=== PATIENT | male | born 1950 | race Caucasian/White ===

== ENCOUNTER 2022-09-13 12:18 | Day surgery (SDC) | payer OTHER, SELFPAY ==
--- NOTE | 2022-09-13 | PATH_ITS ---
[facility] Accession Number: [id number] . 01 Material submitted: . PART A: ileo-cecal valve - ILEOCECAL VALVE POLYP PART B: colon - ASCENDING COLON POLYP PART C: colon - TRANSVERSE COLON POLYP . 01 Diagnosis: A. Ileocecal Valve, Polyp, Biopsy: Tubular adenoma. . B. Ascending Colon, Polyp, Biopsy: Benign lymphoid aggregate. . C. Transverse Colon, Polyp, Biopsy: Colonic mucosa with mild superficial hyperplastic type changes. Additional levels were examined. Negative for dysplasia and malignancy. MRV 09/17/2022 1533 Local . 01 Electronically signed: . Yamile Fuentes MD, Pathologist NPI- [id number] . 01 Gross description: . Part A: ILEOCECAL VALVE POLYP: Received in formalin is 1 fragment(s) of martinez, soft tissue measuring 0.5 x 0.2 x 0.2 cm submitted entirely in 1 cassette(s) Part B: ASCENDING COLON POLYP: Received in formalin is 1 fragment(s) of martinez, soft tissue measuring 0.3 x 0.2 x 0.2 cm submitted entirely in 1 cassette(s) Part C: TRANSVERSE COLON POLYP: Received in formalin is 1 fragment(s) of martinez, soft tissue measuring 1.1 x 0.2 x 0.2 cm submitted entirely in 1 cassette(s) /CPE 09/15/2022 1028 Local . 01 Pathologist provided ICD-10: D12.0, K63.5 . 01 CPT . 242085, 134927, 664409 Specimen Comment: A courtesy copy of this report has been sent to [phone] Performed at: 01 [facility] [address] [place] [address] [address] [facility], [place], [place] [id number] MD Romario Baker MD Phone: [phone]
[2022-09-13 13:02] VITALS: BP 156/79; PULSE 72; RESP 18; TEMP 36.7; O2SAT 97; BMI 31.4
[2022-09-13 13:14] LABS: COVID19 -Nasal RAPID Negative (Negative)
[2022-09-13 13:20] VITALS: BMI 31.4
[2022-09-13] MEDS: LACTATED RINGERS 1,000 ML 84 ML IV (13:25)
--- NOTE | 2022-09-13 13:36 | PM.HP.1 ---
History of Present Illness History of Present Illness Date Patient Seen: 09/13/22 Time Patient Seen: 13:30 Chief complaint: Colonoscopy Narrative: Patient is a very pleasant 72-year-old male who presented for colonoscopy. His last complete colonoscopy was over 5 years ago. He had an attempted colonoscopy about 3 years ago however he had a poor preparation at that time. Repeat colonoscopy was postponed due to COVID. He is overdue for surveillance colonoscopy. He states he is unsure whether not he had polyps on his last complete exam, but he has had polyps on previous examinations. Patient History Medical History (Updated 09/13/22 @ 13:22 by Ashley Mcgill RN) Diabetes High cholesterol HTN (hypertension) Family & Social History Social History: household members spouse Tobacco & Substance use: Smoking Status Former smoker alcohol intake current alcohol intake frequency 0-2 drinks per day Substance Use Type marijuana Meds Home Medications and Allergies Home Medications Medication Instructions Recorded Confirmed Type amlodipine 10 mg tablet 10 mg PO DAILY 09/13/22 09/13/22 History amoxicillin 500 mg tablet 1,000 mg PO Q12H 09/13/22 09/13/22 History aspirin 81 mg tablet 81 mg PO DAILY 09/13/22 09/13/22 History atorvastatin 80 mg tablet 80 mg PO BEDTIME 09/13/22 09/13/22 History escitalopram oxalate 5 mg tablet 5 mg PO DAILY 09/13/22 09/13/22 History glipizide 2.5 mg tablet, extended 2.5 mg PO BID 09/13/22 09/13/22 History release 24 hr hydrochlorothiazide 50 mg tablet 50 mg PO DAILY 09/13/22 09/13/22 History lisinopril 40 mg tablet 40 mg PO DAILY 09/13/22 09/13/22 History metformin 1,000 mg tablet,extended 1,000 mg PO BID 09/13/22 09/13/22 History release 24hr Allergies Allergy/AdvReac Type Severity Reaction Status Date / Time No Known Drug Allergies Allergy Verified 09/13/22 13:12 Review of Systems Review of Systems ROS: Yes All systems reviewed with the patient and are negative except as otherwise documented Exam Vital Signs (past 8 hours): - 09/13/22 13:02 Temperature 98.1 F Pulse Rate 72 Respiratory Rate 18 Blood Pressure 156/79 H Pulse Oximetry 97 Oxygen Delivery Method Room Air Oxygen Delivery Method Room Air Const General: cooperative, healthy appearing, comfortable and No acute distress HENMT Head: atraumatic Resp Effort & Inspection: normal respiratory effort, able to speak in complete sentences and no audible wheezes Auscultation: clear to auscultation bilaterally Cardio Rate: regular rate Rhythm: regular rhythm GI Palpation: soft Auscultation: normal bowel sounds Objective Labs Labs: Laboratory Results - last 24 hr 09/13/22 12:48 SARS-CoV-2 (PCR) Negative Assessment & Plan Assessment & Plan narrative: 1. Personal history colon polyps 2. Personal history of poor preparation Colonoscopy today, further recommendations to follow Time Spent With Patient Critical Care time: I spent a total of [] minutes of critical care time on this patient's care today; this time is exclusive of procedural time.
--- NOTE | 2022-09-13 14:05 | PM.OP.COLON ---
Operative Date/Time/Diagnoses Date of procedure: 09/13/22 Time of procedure: 13:42 Procedure Notes Procedure in detail: Surgeon: Angle Manzano DO Procedure: Colonoscopy with polypectomy Preoperative diagnosis: 1. Personal history of colon polyps Postoperative diagnosis: 1. 3 mm ileocecal valve polyp removed with Jumbo forceps 2. 3 mm ascending colon polyp removed Jumbo forceps 3. 6 mm transverse colon polyp removed with cold snare 4. Diverticulosis scattered throughout the transverse colon, descending colon and sigmoid. 5. Grade 1 internal hemorrhoids noted on retroflexion 6. Normal-appearing terminal ileum Medications: Monitored anesthesia care Preanesthesia Assessment An H and P was performed/updated and the Px?s ASA class is 2. The procedure was discussed in detail with the patient. The potential risks and complications including infection, bleeding, missed lesions, perforation, need for surgery in case of perforation, prolonged hospital stay, and were explained. A brief question and answer period was allotted and once all questions were answered, informed consent was obtained. The patient was brought back to the procedure room and placed on standard monitoring. The patient?s vital signs were monitored continuously throughout the entire procedure. Prior to starting, a timeout was performed to confirm the patient?s identity, allergies, medications, and procedure. Procedure in detail The patient was placed in left lateral decubitus position and once adequate sedation was obtained a REYNALDO was performed. The digital rectal examination did not reveal any palpable lesions. The tip of the colonoscope was placed in the anal canal and advanced without difficulty all the way to the cecum which was identified by the appendiceal orifice and the ileocecal valve. Terminal ileal intubation was achieved. Terminal ileum appeared unremarkable. A 3 mm polyp was noted on the ileocecal valve. This was removed with Jumbo forceps. A 3 mm polyp was found in the ascending colon removed with Jumbo forceps. A 6 mm transverse colon polyp was removed with cold snare. Diverticulosis was scattered throughout the transverse, descending, and sigmoid colon. Grade 1 internal hemorrhoids were noted on retroflexion. Exam was otherwise unremarkable. Careful examination of all fernandez of the colon was performed with irrigation of any residual stool, greater than usual irrigation was required due to quality of preparation. However we were able to achieve adequate prep. The patient tolerated the procedure well and will be brought back to the recovery area to be discharged once criteria are met. The prep was judged to be good/excellent and adequate to identify polyps less than 6 mm. The withdrawal time was 15min. Complications There were no complications and estimated blood loss was minimal. Recommendations: Resume high-fiber diet Continue outPx medications Follow up pathology results Repeat colonoscopy will be determined after pathology results are. Recommend additional dose preparation for future colonoscopies. An emergency contact number was given to the patient for any complications related to the procedure
[2022-09-13 14:13] VITALS: BP 118/70; PULSE 67; RESP 19; TEMP 36.9; O2SAT 98
[2022-09-13 14:16] VITALS: BP 118/70; PULSE 73; RESP 16; TEMP 36.8; O2SAT 98
[2022-09-13 14:30] VITALS: BP 138/78; PULSE 77; RESP 16; TEMP 36.3; O2SAT 98
== END 2022-09-13 14:35 | disposition home or self-care (01) ==
PROVIDERS: PCP Family Medicine; Referring Provider Student in an Organized Health Care Education/Training Program; Visit Provider Student in an Organized Health Care Education/Training Program
PROC: 0DJD8ZZ Inspection of Lower Intestinal Tract, Via Natural or Artificial Opening Endoscopic (ICD-10-PCS; CPT 45378; principal; 2022-09-13 14:00)
DX: Z12.11 Encounter for screening for malignant neoplasm of colon (principal); Z86.010 Personal history of colon polyps; K64.0 First degree hemorrhoids; K57.30 Diverticulosis of large intestine without perforation or abscess without bleeding; Z20.822 Contact with and (suspected) exposure to COVID-19; E11.9 Type 2 diabetes mellitus without complications; E78.00 Pure hypercholesterolemia, unspecified; I10 Essential (primary) hypertension; Z79.84 Long term (current) use of oral hypoglycemic drugs; D12.0 Benign neoplasm of cecum
CPT/HCPCS: 45385; 45380; 87635; C9803; J2704